=== PATIENT | female | born 1995 | race Caucasian/White ===

== ENCOUNTER 2017-09-16 09:16 | Observation (INO) | payer MEDICAID, SELFPAY ==
[2017-09-16] MEDS ORDERED: Ondansetron HCl/PF 4 MG/2 ML Vial ONE (09:58)
[2017-09-16] MEDS ORDERED: Fentanyl 100 MCG/2 ML VIAL ONE (09:59)
--- NOTE | 2017-09-16 10:28 | RAD ---
RIGHT FOOT TWO VIEWS: INDICATIONS: Right foot trauma. FINDINGS: There is lateral dislocation of the tibiotalar joint with an associated medial malleolar fracture. N o additional fracture is evident. IMPRESSION: Lateral dislocation of the ankle with a medial malleolar ankle fracture. POS: [facility]
--- NOTE | 2017-09-16 10:33 | RAD ---
LEFT TIBIA/FIBULA FOUR VIEWS: 09/16/2017 HISTORY: Trauma. Pain. COMPARISON: None. FINDINGS: There is a severe fracture dislocation of the right ankle joint. There is an obliquely oriented, com minuted fracture at the junction of the middle and distal third of the fibula, with prominent lateral angulation of the distal fracture fragment. There is marked widening of the distal tibiofibular int erspace, at 2.6 cm. There is a transverse fracture through the medial malleolus, which is displaced laterally and distally. There is a fracture fragment projecting proximal to the talus on the frontal view, which likely represents a displaced posterior malleolar fracture. On the lateral examination, the talus is dislocated posteriorly, with respect to the distal tibia, and the distal fibula fractur e demonstrates posterior displacement. IMPRESSION: Trimalleolar fracture/dislocation of the right ankle. POS: [facility]
--- NOTE | 2017-09-16 10:58 | RAD ---
RIGHT ANKLE TWO VIEWS: HISTORY: A 22-year-old female with a history of a right ankle injury. FINDINGS: Trimalleolar fracture dislocation of the right ankle with marked lateral displacement of the talus, r elative to the tibia. Displaced and angulated distal femoral diaphyseal fracture. IMPRESSION: Extensive fracture dislocation of the ankle. POS: [facility]
--- NOTE | 2017-09-16 10:59 | RAD ---
LEFT ANKLE RADIOGRAPH SERIES TWO VIEWS: CLINICAL HISTORY: Post traumatic pain. FINDINGS: There is soft tissue prominence. The ankle is rotated, which does limit evaluation for alignment. T here is no fracture visualized. There is a small dorsal enthesophyte at the calcaneus. IMPRESSION: 1. Limited evaluation due to patient rotation. No discrete fracture is visualized. 2. There is soft tissue prominence. Correlate with physical examination. POS: [facility]
--- NOTE | 2017-09-16 11:01 | RAD ---
RIGHT ANKLE TWO VIEW SERIES: INDICATIONS: Post reduction evaluation of right ankle fractures. FINDINGS: Redemonstration of an angulated, slightly comminuted mid to distal diaphyseal fibular fracture. Ther e is redemonstration of fractures of the medial and posterior malleoli. There is slight widening of the medial aspect of the ankle mortise. Alignment is improved, status post reduction. There is over lying splint. IMPRESSION: Splinted, reduced fractures at the distal right leg/ankle. POS: [facility]
[2017-09-16 11:05] LABS: #Basophils 0.1 thou/uL (0.0-0.2); #Eosinphils 0.1 thou/uL (0.0-0.7); #Lymphocytes 1.9 thou/uL (1.20-3.40); #Monocytes 0.8 thou/uL (0.11-0.59); #Neutrophils 9.3 thou/uL (1.40-6.50); %Basophils 0.7 % (0.0-1.0); %Eosinophils 1.2 % (0.0-10.0); %Lymphocytes 15.9 % (28.0-48.0); %Monocytes 6.3 % (0.0-4.0); Mean Corpuscular HGB CONC 35.8 g/dL (32.0-36.0); Mean Corpuscular Hemoglobin 32.8 pg (25.0-35.0); Mean Corpuscular Volume 91.6 fL (78.0-98.0); Mean Platelet Volume 7.3 fL (7.4-10.4); Platelet Count 221 thou/uL (130-400); RBC Distribution Width 11.6 % (11.5-14.5); Red Blood Cell (RBC) Count 4.26 mill/uL (4.00-5.20); White Blood Cell (WBC) Count 12.2 thou/uL (4.8-10.8)
[2017-09-16] MEDS ORDERED: traMADol HCl 50 MG TAB PO PRN (11:13)
[2017-09-16] MEDS ORDERED: Ondansetron ODT 4 MG TAB PO PRN (11:14)
[2017-09-16] MEDS ORDERED: Dextrose 5% in Water 1,000 ML IV PRN (11:14)
[2017-09-16] MEDS ORDERED: Ondansetron HCl/PF 4 MG/2 ML Vial IVP PRN (11:14)
[2017-09-16] MEDS ORDERED: Dextrose 50% Abboject 50 ML SYRINGE SLOW IVP PRN (11:14)
[2017-09-16 11:24] LABS: Prothrombin Time 13.4 SEC (12.0-14.7)
[2017-09-16 11:25] LABS: PTT 29.1 SEC (22.9-36.1)
--- NOTE | 2017-09-16 11:37 | RAD ---
PORTABLE UPRIGHT FRONTAL CHEST RADIOGRAPH: 09/16/2017 HISTORY: Chest pain. COMPARISON: None. FINDINGS: No pneumothorax, pleural fluid, focal consolidation, or alveolar edema. Heart and mediastinal contou rs are unremarkable. IMPRESSION: No acute findings. POS: [facility]
[2017-09-16 11:43] LABS: ALT (SGPT) 58 U/L (8-55); AST (SGOT) 32 U/L (5-34); Albumin 4.1 g/dL (3.5-5.0); Alkaline Phosphatase 53 U/L (40-150); Anion Gap 12 mmol/L (10-20); BUN (Urea Nitrogen) 12 mg/dL (7.0-18.7); Bilirubin, Total 0.4 mg/dL (0.2-1.2); Calc. Creatinine Clearance 0 mL/min (70-130); Calcium 8.1 mg/dL (7.8-10.44); Carbon Dioxide 23 mmol/L (22-29); Chloride 108 mmol/L (98-107); Estimated GFR-MDRD 88; Globulin 2.3 g/dL (2.4-3.5); Glucose 128 mg/dL (70-105); Potassium 3.6 mmol/L (3.5-5.1); Protein, Total 6.4 g/dL (6.0-8.3); Sodium 139 mmol/L (136-145)
--- NOTE | 2017-09-16 11:58 | HP ---
DATE OF ADMISSION: 09/16/2017 ATTENDING PHYSICIAN: Dr. Keller. TRAUMA ACTIVATION: Not applicable. HISTORY OF PRESENT ILLNESS: This is a 22-year-old female who presented to [facility] with a chief complaint of right ankle pain status post mechanical fall. Per patient and ER documentation, she wa s walking downstairs, slipped and fell with immediate onset of bilateral ankle pain, right greater th an left. She was evaluated in the emergency room and found to have an isolated right ankle fracture. She was reduced in the ER with ketamine and fentanyl. Upon my evaluation, she has a chief complain t of right ankle discomfort and remains somewhat altered secondary to pain medication. She denies hi tting her head or loss of consciousness. I have discussed the case with Orthopedic Surgery who plann ed for operative intervention in the morning. The patient states pain is improved, status post pain medications and was worsened with movement and associated with inability to bear weight. PAST MEDICAL HISTORY: None. ALLERGIES: None. HOME MEDICATIONS: Include Lexapro 20 mg p.o. daily. CHRONIC MEDICAL ILLNESSES: None. PSYCHIATRIC HISTORY: Anxiety and depression. SOCIAL HISTORY: Denies tobacco, alcohol, or illicit drug use. FAMILY HISTORY: Patient reports that her mother has a history of bipolar depression. REVIEW OF SYSTEMS: A 10-point review of systems was reviewed and essentially negative except as iron cated in the HPI. PHYSICAL EXAMINATION: VITAL SIGNS: On presentation, blood pressure 151/109, pulse 119, respirations 20, O2 saturation 97% on room air. GENERAL: Well-developed female in no acute distress, resting in bed. HEAD: Normocephalic, atraumatic. EYES: Pupils are PERRL. Extraocular movements are intact. NECK: Supple. Trachea is midline. CHEST: Atraumatic, normal work of breathing, symmetric rise. No tenderness to palpation. LUNGS: Clear to auscultation bilaterally. CARDIOVASCULAR: Regular rate and rhythm. GASTROINTESTINAL: Abdomen is soft, nontender and nondistended. MUSCULOSKELETAL: Bilateral upper extremities within normal limits. BACK: Exam reported as being within normal limits. Left ankle with tenderness to palpation, but ful l range of motion. Right lower extremity splint is clean, dry, and intact. She is neurovascularly i ntact distal to the side of her injury. NEUROLOGIC: No focal deficit is noted. LABORATORY DATA: WBC 12.2, hemoglobin 14.0, hematocrit 39.0, platelet count 221. Chemistry is pendi ng. RADIOGRAPHIC FINDINGS: X-ray of the right ankle shows trimalleolar fracture dislocation per Radiolog y read. X-ray of the right foot demonstrated the same. Right tib/fib fracture demonstrated the same . Left ankle x-ray without fracture or dislocation. Post-reduction right ankle film showed improved alignment of the right ankle fracture dislocation. Chest x-ray without acute cardiopulmonary proces s. ASSESSMENT: 1. Status post mechanical fall. 2. Right ankle fracture dislocation. 3. Acute traumatic pain. 4. History of anxiety and depression. PLAN: Admit to Trauma Services. Perioperative pain management with p.o. and IV analgesia. Gentle I V fluids overnight. The patient should be n.p.o. after midnight. Orthopedic Surgery will see and ev aluate the patient, but currently planned for operative intervention in the morning if the patient's last p.o. intake was 08:30 this morning. Plans for admission were discussed with the patient, who vo calized her understanding. All questions were answered at the time of this dictation. Trauma attend ing has been notified of admission.
[2017-09-16] MEDS ORDERED: traMADol HCl 50 MG TAB PO SCH (12:45)
[2017-09-16] MEDS ORDERED: Acetaminophen 500 MG TAB PO SCH (12:45)
[2017-09-16] MEDS: Ketorolac Tromethamine 30 MG/ML VIAL IVP SCH ×3 (13:19→23:43)
[2017-09-16] MEDS ORDERED: CEFAZOLIN/Water 2 GM/20 ML SYRINGE SLOW IVP SCH (14:15)
[2017-09-16 14:55] VITALS: BMI 44.7
--- NOTE | 2017-09-16 15:00 | CON ---
DATE OF CONSULTATION: 09/16/2017 REQUESTING PHYSICIAN: Dr. Ricardo Keller. HISTORY OF PRESENT ILLNESS: Patient is a 22-year-old lady who was examined in her hospital bed on to wer [facility] with a principal complaint of right ankle pain. She reports that while walking down stairs, she slipped and fell with a twisting injury to the right ankle. Upon evaluation in the emergency room with x-ray, she was found to have a fracture-dislocation of the ankle involvem ent of the lateral malleolus, medial malleolus and posterior malleolus with disruption of the interos seous membrane of the tib-fib joint distally. A closed reduction was performed in the emergency room with significant improvement in alignment and she was placed in a splint. The patient is now admitt ed with plans to take her to the operating room for surgical stabilization. PAST MEDICAL HISTORY: Otherwise, healthy except for history of anxiety and depression. PAST SURGICAL HISTORY: Negative. MEDICATIONS: Lexapro. ALLERGIES: None known. SOCIAL HISTORY: She denies tobacco, alcohol, or recreational drug use. FAMILY HISTORY: Noncontributory. REVIEW OF SYSTEMS: Denies recent fevers, chills or sweats. Denies numbness or tingling in the lower extremity. Denies chest pain or shortness of breath. PHYSICAL EXAMINATION: VITAL SIGNS: Temperature of 98.7, heart rate of 100, respiratory rate of 18, blood pressure 151/90. HEENT: Atraumatic, normocephalic. HEART: Shows a regular rate and rhythm without murmur. LUNGS: Clear to auscultation bilaterally. ABDOMEN: Round, soft and nontender. Pelvis is stable. EXTREMITIES: Remarkable for bilateral upper extremities that are atraumatic. A left lower extremity also atraumatic at the hip, knee, ankle and foot. The right lower extremity is remarkable for an at raumatic hip and knee. The ankle was held in a posterior fiberglass splint. She is wiggling her toe s. She does not have significant pain with passive stretch. She has intact subjective sensation and excellent capillary refill. X-RAY FINDINGS: Pre and post-reduction x-rays of the ankle as well as AP and lateral tib-fib x-rays were obtained in the emergency room. These show a fracture dislocation of the ankle initially with a high Durham C fracture of the lateral malleolus and complete disruption of the distal tibia/fibula in terosseous membrane, a small fracture of the medial malleolus and a small posterior malleolar segment as well. Following reduction, the talus is reduced under the mortise where still there was some res idual displacement of all three malleoli. ASSESSMENT: A 22-year-old lady status post twisting injury in right ankle, sustaining trimalleolar a nkle fracture dislocation, now with successful reduction. PLAN: At this time, the patient will be taken to the operating room for surgical stabilization of th e fracture including syndesmotic screw placement. I have discussed with patient the risks and benefi ts of surgery. Risks include but are not limited to bleeding, infection, nerve injury, DVT, PE, arth ritis, need for hardware removal, loss of limb or life. Patient appears to understand and does wish to proceed. We will keep her n.p.o. after midnight with plans to take her to the operating room in t morning.
[2017-09-16] MEDS: traMADol HCl 50 MG TAB PO SCH ×2 (17:04→23:42)
[2017-09-16] MEDS: Acetaminophen 500 MG TAB PO SCH ×2 (17:04→23:41)
[2017-09-16] MEDS: Famotidine 20 MG TAB PO SCH (20:42)
[2017-09-16] MEDS: Escitalopram Oxalate 10 mg Tablet PO SCH (20:42)
[2017-09-16] MEDS: Senokot S 8.6-50 MG TAB PO SCH (20:43)
[2017-09-16] MEDS ORDERED: Famotidine/PF 20 mg/2ml Vial SLOW IVP SCH (21:00)
[2017-09-17] MEDS: Sodium Chloride 0.9% 1,000 ML IV SCH ×3 (00:26→18:25)
[2017-09-17] MEDS: Ketorolac Tromethamine 30 MG/ML VIAL IVP SCH ×3 (05:09→18:25)
[2017-09-17] MEDS: Acetaminophen 500 MG TAB PO SCH ×3 (05:09→18:24)
[2017-09-17] MEDS: traMADol HCl 50 MG TAB PO SCH ×3 (05:10→18:24)
[2017-09-17] MEDS: Senokot S 8.6-50 MG TAB PO SCH (09:26)
[2017-09-17] MEDS: Famotidine 20 MG TAB PO SCH (09:27)
[2017-09-17] MEDS: Escitalopram Oxalate 10 mg Tablet PO SCH (09:27)
[2017-09-17] MEDS ORDERED: Midazolam HCl 2 mg/2 ml Vial ONE ×2 (10:29→12:55)
[2017-09-17] MEDS ORDERED: CEFAZOLIN/Water 2 GM/20 ML SYRINGE ONE (10:29)
[2017-09-17] MEDS ORDERED: Fentanyl 100 MCG/2 ML VIAL ONE (12:51)
[2017-09-17] MEDS ORDERED: PROPOFOL 200 MG/20 ML VIAL ONE (13:05)
[2017-09-17] MEDS ORDERED: Succinylcholine Chloride 20 MG/ML 10 ml SYRINGE FS ONE (13:05)
[2017-09-17] MEDS ORDERED: Glycopyrrolate 0.2 MG/ML 5 ML SYRINGE ONE (13:05)
[2017-09-17] MEDS ORDERED: Ketorolac Tromethamine 30 MG/ML VIAL ONE (13:05)
[2017-09-17] MEDS ORDERED: Dexamethasone 20 MG/5 ML VIAL ONE (13:05)
[2017-09-17] MEDS ORDERED: Lidocaine 1% PF 5 ML VIAL ONE (13:05)
[2017-09-17] MEDS ORDERED: ePHEDrine/0.9% NaCl/PF SYRINGE 50 mg/10 ml ONE (13:05)
[2017-09-17] MEDS ORDERED: Ondansetron HCl/PF 4 MG/2 ML Vial ONE (13:05)
[2017-09-17] MEDS ORDERED: Bupivacaine PF 0.5% 30 ML VIAL ONE (13:35)
[2017-09-17] MEDS ORDERED: HYDROmorphone 0.5 MG/0.5 ML SYRINGE ONE (13:35)
--- NOTE | 2017-09-17 14:08 | PRG ---
DATE OF SERVICE: 09/17/2017 SUBJECTIVE: This is a 22-year-old female status post mechanical fall resulting in a right ankle frac ture. Orthopedic Surgery has seen and evaluated the patient and plan for operative intervention late r today. The patient states pain has been well controlled. There were no acute overnight event. Up on my evaluation this morning, she vocalized no complaint. OBJECTIVE: VITAL SIGNS: Temperature 98.0, pulse 77, respirations 16, O2 sat 95% on room air, and blood pressure 136/77. GENERAL: Well-developed female in no acute distress, resting in bed. PULMONARY: Normal work of breathing. Symmetric rise. CARDIOVASCULAR: Regular rate and rhythm. GASTROINTESTINAL: Abdomen is soft, nontender, nondistended. MUSCULOSKELETAL: Moves all extremities x4, right lower extremity dressing clean, dry, and intact. S he is neurovascularly intact to except to the site of her injury. NEUROLOGIC: No focal deficit noted. LABORATORY DATA: No new laboratory or radiographic findings. ASSESSMENT: 1. Status post mechanical fall. 2. Right ankle fracture. 3. Acute traumatic pain. PLAN: Plan to OR with Orthopedic Surgery later today. We will follow up postoperatively. Per my di scussion with Orthopedic Surgery, patient will likely be discharged postoperatively provided pain is controlled. She is tolerating her diet and is able to ambulate. Family at bedside and patient were updated on plan of care and all questions were answered at the time of this dictation. Patient has b [place] discussed with trauma attending and seen by Dr. Keller.
[2017-09-17] MEDS ORDERED: HYDROmorphone 2 MG/ML VIAL SLOW IVP PRN (14:33)
[2017-09-17] MEDS ORDERED: Promethazine HCl 25 MG/ML VIAL SLOW IVP PRN (14:33)
[2017-09-17] MEDS ORDERED: Ondansetron HCl/PF 4 MG/2 ML Vial IVP PRN (14:33)
[2017-09-17] MEDS ORDERED: Promethazine HCl 25 MG/ML VIAL IM PRN (14:33)
[2017-09-17 16:28] VITALS: TEMP 97.8
[2017-09-17 17:05] VITALS: BP 132/83
--- NOTE | 2017-09-18 09:02 | DIS ---
DATE OF ADMISSION: 09/16/2017 DATE OF DISCHARGE: 09/17/2017 ADMISSION DIAGNOSES: 1. Status post mechanical fall downstairs. 2. Right ankle fracture. 3. Acute traumatic pain. DISCHARGE DIAGNOSES: 1. Status post mechanical fall downstairs. 2. Right ankle fracture. 3. Acute traumatic pain. CONSULTANTS: Dr. Amor of orthopedic Surgery. PROCEDURES: Operative intervention to her injury on 09/17/[address] Amor. HOSPITAL COURSE: Dennise French is a 22-year-old female who presented to [facility] status post fa ll down stairs at home. Patient was evaluated in the emergency room and found to have the above inju new. She underwent operative intervention to her injuries on 09/17/2017. Postoperatively, the ailyn ent was doing well. She worked with physical therapy for crutch training. She was tolerating a gene ral diet and pain was controlled. She was medically stable for discharge on the evening of 8. DISCHARGE DISPOSITION: Home. DISCHARGE CONDITION: Good. PHYSICAL EXAMINATION: As documented in daily progress note dated 09/17/2017. DISCHARGE INSTRUCTIONS: Discharge instructions were provided to the patient and family at bedside wh o vocalized her understanding. She is nonweightbearing to right lower extremity. She should keep he r splint clean, dry, and intact. She should use her incentive spirometer. DISCHARGE MEDICATIONS: Patient was discharged on any home medications that she was taking on admissi on and pain medications as documented in the chart and provided by Orthopedic Surgery. FOLLOWUP APPOINTMENTS: Patient should follow up with Orthopedic surgery in approximately 2 weeks. S he does not need to follow up with Dr. Dudley, trauma services at this time, but may call our office w ith any questions. This is merely a summary of the patient's hospitalization. For more in depth inf ormation, please see her medical record in its entirety.
--- NOTE | 2017-09-18 11:49 | RAD ---
RIGHT ANKLE THREE VIEWS: History: 22-year-old female status post ORIF right ankle. FINDINGS: Metal plate and screws stabilize the fibular shaft and screws stabilize the distal tibial fibular shahab nt and medial malleolus. There is a posterior malleolar fracture. No significant malalignment. IMPRESSION: No significant malalignment following ORIF right ankle. POS: [facility]
--- NOTE | 2017-09-18 11:51 | OP ---
DATE OF SURGERY: 09/17/2017 PREOPERATIVE DIAGNOSES: Trimalleolar ankle fracture-dislocation with syndesmotic disruption. POSTOPERATIVE DIAGNOSES: Trimalleolar ankle fracture-dislocation with syndesmotic disruption. SURGICAL PROCEDURES: Open reduction and internal fixation of right medial and lateral malleoli with syndesmotic screw placement. ANESTHESIA: General. SURGEON: Stevie Amor M.D. CHILD CARE CENTRE DIRECTOR: Dai Jeffery PA-C IMPLANTS: Synthes 8-hole 1/3 tubular plate with small fragment screws. TOURNIQUET TIME: 88 minutes at 300 mmHg. COMPLICATIONS: None. DRAINS: None. SPECIMEN: None. OUTCOME: Satisfactory. INDICATIONS: The patient is a 22-year-old lady who is status post slip and fall down stairs, sustain ing a twisting injury to the right lower extremity. In the emergency room, she was found to have a f racture dislocation with complete disruption of the distal tibia/fibula articulation. A closed reduc tion was performed in the emergency room; however, patient is still in need of surgical stabilization of this fracture. Informed consent has been obtained. I believe all questions have been answered. PROCEDURE IN DETAIL: The patient was brought to the operating room and a timeout performed followed by the induction of general anesthesia. Next, patient was positioned supine on the OR table and a st erile prep and drape was performed of the right lower extremity. The limb was then exsanguinated wit h Esmarch bandage, tourniquet inflated to 300 mmHg. A lateral incision was made over the distal fibu la after skin was sharply incised, dissection was carried down bluntly to the underlying fracture. A minimal subperiosteal dissection was then performed to allow for easy visualization of the fracture edges. This fracture was comminuted with a posterior butterfly fragment. The fracture was reduced a nd held in place with bone tenaculums and then an 8-hole 1/3 tubular plate was fastened to the latera l cortex of the distal fibula. This was held in place with cortical screws above and below the fract ure. Next, attention was placed at the mortise. A reduction was performed of the mortise and then a 4.0 mm cortical screw was passed in standard fashion through the fibula and across both cortices of the tibia reducing the distal tip joint. At the completion of this, a second small incision was made medially. The small anteromedial malleolar fragment was reduced, held in place with bone tenaculum and this was stabilized with a single 4-0 partially threaded cancellous screw. At the completion of this, AP, mortise and lateral views of the ankle were obtained that showed anatomic alignment of the fracture. The posterior malleolar fragment was somewhat small and felt to be not in need of surgical stabilization. Both incisions were then irrigated with normal saline. The lateral side closed in l conway with 0 Vicryl deep, followed by 2-0 Vicryl, bart for the skin. The medial incision was clos ed with combination of Vicryl and nylon. A Xeroform gauze, Webril, and fiberglass splint was then ap plied to the ankle. The tourniquet was let down at the completion of dressing, and the patient was t ransferred to recovery room in stable condition. There were no complications. She tolerated the pro cedure well.
== END 2017-09-17 18:42 | disposition home or self-care (01) ==
LOC: ERS 09:16 → SURG A 11:11
PROVIDERS: ADMIT Surgery; ATTEND Orthopaedic Surgery
PROC: 0QSJ04Z Reposition Right Fibula with Internal Fixation Device, Open Approach (ICD-10-PCS; principal; 2017-09-17)
PROC: 0QSG04Z Reposition Right Tibia with Internal Fixation Device, Open Approach (ICD-10-PCS; 2017-09-17)
DX: S82.851A Displaced trimalleolar fracture of right lower leg, initial encounter for closed fracture (principal); W10.9XXA Fall (on) (from) unspecified stairs and steps, initial encounter
CPT/HCPCS: 27840; 36415; 71045; 76001; 80053; 85025; 85610; 85730; 93005; 96361; 96374; 96375; 96376; C1713; G0378; G0390; G8978-GP-CL; G8979-GP-CJ; J1100; J1170; J1885; J2001; J2250; J2405; J2704; J3010; S0020

== ENCOUNTER 2017-12-14 15:05 | Outpatient (CLI) | payer SELFPAY ==
[2017-12-14 16:35] LABS: BHCG - Serum Negative (NEGATIVE); Pregs Control Background? CLEAR/WHITE (CLR/WHITE); Pregs Control Bar Appear? YES (CONTROL BAR)
== END 2017-12-14 15:06 | disposition home or self-care (01) ==
LOC: LABBT 15:05
PROVIDERS: ATTEND Orthopaedic Surgery
DX: Z01.812 Encounter for preprocedural laboratory examination (principal); T85.848A Pain due to other internal prosthetic devices, implants and grafts, initial encounter
CPT/HCPCS: 84703

== ENCOUNTER 2017-12-27 09:37 | Day surgery (SDC) | payer OTHER, SELFPAY ==
[2017-12-14 15:33] VITALS: BMI 48.6
[2017-12-27] MEDS ORDERED: Lidocaine 1% (PF) 30 ML VIAL ONE (11:50)
[2017-12-27] MEDS ORDERED: CEFAZOLIN/Water 2 GM/20 ML SYRINGE ONE (12:30)
[2017-12-27] MEDS ORDERED: Ketorolac Tromethamine 30 MG/ML VIAL ONE (13:06)
[2017-12-27] MEDS ORDERED: PROPOFOL 200 MG/20 ML VIAL ONE (13:06)
[2017-12-27] MEDS ORDERED: Dexamethasone 20 MG/5 ML VIAL ONE (13:06)
[2017-12-27] MEDS ORDERED: Lidocaine 1% PF 5 ML VIAL ONE (13:06)
[2017-12-27] MEDS ORDERED: Ondansetron HCl/PF 4 MG/2 ML Vial ONE (13:06)
[2017-12-27] MEDS ORDERED: Fentanyl 100 MCG/2 ML VIAL ONE ×2 (13:28→14:31)
--- NOTE | 2017-12-28 00:35 | OP ---
DATE OF PROCEDURE: 12/27/2017 PREOPERATIVE DIAGNOSIS: Right ankle bimalleolar fracture with symptomatic retained hardware. POSTOPERATIVE DIAGNOSIS: Right ankle bimalleolar fracture with symptomatic retained hardware. SURGICAL PROCEDURE: Removal of syndesmotic screw, right ankle. ANESTHESIA: General. SURGEON: Stevie Amor M.D. GENERAL LABOR: BALJEET Coughlin. IMPLANTS: None. DRAINS: None. SPECIMEN: Explanted screw given to the patient. OUTCOME: Successful syndesmotic screw removal. INDICATIONS: Ms. Gilliam is a pleasant 22-year-old lady status post ankle fracture dislocation in [facility] she sustained among other injuries, a syndesmotic disruption. This was stabilized with a spanning screw. She has now gone on to heal her fractures and does have the retained syndesmotic screw, ic h is now scheduled for removal to minimize risk of hardware breakage and then in hopes of restoring m ore normal dorsiflexion at the ankle. Informed consent has been obtained. I believe all questions a nswered. DESCRIPTION OF PROCEDURE: The patient was brought to the operating room and a timeout performed foll owed by induction of general anesthesia. Next, a sterile prep and drape was performed of the right l ower extremity. Next, a small incision was made along her previous scar from placement of the syndes motic screw. Under C-arm localization, an incision was made overlying the syndesmotic screw and then using blunt dissection, the screw head was able to be appreciated. The screwdriver was then inserte d into the head of the screw and the screw was removed without difficulty. Following removal, a sing le AP C-arm image was obtained to confirm and document hardware removal. The wound was then irrigate d with normal saline with bulb syringe and closed with a single layer of 3-0 nylon in horizontal mabel ress fashion. A Xeroform gauze and Theodore wrap dressing was then applied to the right ankle and then pa tient was transferred to recovery room in stable condition.
--- NOTE | 2017-12-28 08:55 | RAD ---
TWO INTRAOPERATIVE RADIOGRAPHS RIGHT ANKLE: History: Hardware removal. FINDINGS: There has been surgical removal of the transosseous screw across the distal fibula and tibia. The lat eral stabilization plate and medial malleolar screw remain unchanged. IMPRESSION: Intraoperative surgical removal of right ankle hardware. POS: [facility]
== END 2017-12-28 15:45 | disposition home or self-care (01) ==
LOC: SDC 09:37
PROVIDERS: ATTEND Orthopaedic Surgery
PROC: 0SPFX4Z Removal of Internal Fixation Device from Right Ankle Joint, External Approach (ICD-10-PCS; principal; 2017-12-27)
DX: T84.84XA Pain due to internal orthopedic prosthetic devices, implants and grafts, initial encounter (principal); F41.9 Anxiety disorder, unspecified
CPT/HCPCS: 76001; 96374; J1100; J1885; J2001; J2405; J2704; J3010